=== PATIENT | male | born 1960 | race Caucasian/White ===

== ENCOUNTER 2017-01-16 06:51 | Emergency (ER) | payer OTHER ==
[2017-01-16] MEDS ORDERED: IBUPROFEN 400 MG TABLET PO ONE (07:38)
--- NOTE | 2017-01-16 07:38 | ER PHYSICIAN DOCUMENTATION ---
Physician Documentation [facility] Name:Daniel Andrews Age:56 yrs Sex:Male :1960 Arrival Date:01/16/2017 Time:06:51 BedTrauma-C Private MD:No PCP, Identified ED Ede Dickens Disposition: 01/16/17 07:26 Discharged to Home/Self Care. Impression: Unspecified Drug Poisoning - THC. - Condition is Good. - Discharge Instructions: Altitude - ALTITUDE SICKNESS. - Prescriptions for Zofran 4 mg Oral Tablet - take 1-2 tablet by ORAL route every 4-6 hours As needed; 10 tablet. - Medical Reconciliation form form. - Follow up: Private Physician; When: As needed; Reason: Continuance of care. - Problem is new. - Symptoms have improved. HPI: 01/16 07:00 This 56 yrs old Male presents to ER via Walk In with complaints of Chest Pain. 07:00 This 56 yrs old Male presents to ER via Walk In with complaints of Many jm comnplaints. 07:00 Pt has dizziness, nausea, WALSH, "not feeling right", and anxiety. Pt never once mentioned jm any chest pain to me on my interview. Most of his complaints were just a feeling of not feeling right and wonders if its the THC he ingested. Pt never uses THC, so he still feels intoxicated. . Onset: The symptom(s)/episode began/occurred today. Severity of symptoms: in the emergency department the symptoms are unchanged. The patient has not experienced similar symptoms in the past. The patient has not recently seen a physician. Historical: - Allergies: No known drug Allergies; - Tetanus: < 10 years. - Ebola Screening: : Patient negative for fever greater than or equal to 101.5 degrees Fahrenheit, and additional compatible Ebola Virus Disease symptoms. Patient denies exposure to infectious person. Patient denies travel to an Ebola-affected area in the 21 days before illness onset. . - Immunization history: Flu Vaccine unknown. - Social history: Smoking status: Patient uses tobacco products, current every day smoker. ROS: 07:00 Constitutional: Negative for fever. jm 07:00 Cardiovascular: Negative for chest pain. 07:00 Respiratory: Positive for dyspnea on exertion, Negative for shortness of breath. 07:00 Abdomen/GI: Positive for nausea, Negative for abdominal pain, vomiting. 07:00 Neuro: Positive for dizziness, headache. 07:00 All other systems are negative. Exam: 07:00 Constitutional: The patient appears alert, awake, comfortable. 07:00 Cardiovascular: Rate: normal, Rhythm: regular, Edema: is not appreciated. 07:00 Respiratory: the patient does not display signs of respiratory distress, Respirations: normal, Breath sounds: no acute changes. 07:00 Abdomen/GI: Bowel sounds: normal, Palpation: abdomen is soft and non-tender. 07:00 Musculoskeletal/extremity: DVT Exam: No signs of deep vein thrombosis. Calves: are non-tender, have equal circumference. 07:00 Skin: Appearance: Color: pink, injury, is not appreciated. 07:00 Neuro: Mentation: is normal, appropriate for stated age, Motor: is normal. Vital Signs: 07:01 BP 190 / 98; Pulse 110; Resp 18; Temp 98(O); Pulse Ox 96% on R/A; Weight 90.72 kg; bw2 Height 6 ft. (182.88 cm); Pain 0/10; 07:35 BP 181 / 93; Pulse 93; Resp 16; Pulse Ox 93% on R/A; lp 07:01 Body Mass Index 27.12 (90.72 kg, 182.88 cm) bw2 MDM: 07:12 Patient medically screened. 07:38 EKG attached lp 09:46 Differential Diagnosis THC abuse, Altitude sickness. . Data reviewed: vital signs, nurses notes, EKG, and as a result, I will discharge patient. Test interpretation: by ED physician or midlevel provider: ECG. Counseling: I had a detailed discussion with the patient and/or guardian regarding: the historical points, exam findings, and any diagnostic results supporting the discharge/admit diagnosis, the need for outpatient follow up, with the patient's primary care provider. ECG:. ED course: Pt w all the typical sx of altitude sickness combined with THC intoxication. Pt felt better after reassurance. DC home. . EC:46 Rhythm is regular. QRS [place] is Normal. [place] interval is normal. QRS interval is normal. QT interval is normal. No Q waves. T waves are Normal. No ST changes noted. Dispensed Medications: 07:30 Drug: Zofran 4 mg; Route: PO; lp 07:36 Follow up: Response: Medication administered at discharge. lp 07:30 Drug: Ibuprofen 800 mg; Route: PO; lp 07:37 Follow up: Response: Medication administered at discharge. lp Signatures: Babs Barrett RN RN Ede Blum MD MD Rosy, [facility] bw2
--- NOTE | 2017-01-16 07:38 | ER NURSING DOCUMENTATION ---
Nurse's Notes [facility] Name:Daniel Andrews Age:56 yrs Sex:Male :1960 Arrival Date:01/16/2017 Time:06:51 BedTrauma-C Private MD:No PCP, Identified Diagnosis:Unspecified Drug Poisoning-THC Presentation: 01/16 06:55 Notified ED Physician of patient's arrival and CC Yair José notified. bw2 06:56 Presenting complaint: Patient states: pt states he has chest tightness , dizziness and bw2 nausea. pt states that these symptoms started 3 hours after eating editable marijuana. Transition of care: patient was not received from another setting of care. AIR CAT ACTIVATION no. Asprin Given n/a. 06:56 Method Of Arrival: Walk In bw2 06:56 Acuity: SIENA 3 bw2 Triage Assessment: 07:00 General: Appears in no apparent distress, Behavior is appropriate for age. Pain: Denies bw2 pain. Cardiovascular: No deficits noted. Historical: - Allergies: No known drug Allergies; - Tetanus: < 10 years. - Ebola Screening: : Patient negative for fever greater than or equal to 101.5 degrees Fahrenheit, and additional compatible Ebola Virus Disease symptoms. Patient denies exposure to infectious person. Patient denies travel to an Ebola-affected area in the 21 days before illness onset. . - Immunization history: Flu Vaccine unknown. - Social history: Smoking status: Patient uses tobacco products, current every day smoker. Screenin:04 Infectious Disease Risk None. Abuse screen: Denies threats or abuse. Nutritional bw2 screening: No deficits noted. Assessment: 07:02 See Triage Assessment done by same RN. Pain: Denies pain. Pain does not radiate. Pain bw2 began suddenly. Vital Signs: 07:01 BP 190 / 98; Pulse 110; Resp 18; Temp 98(O); Pulse Ox 96% on R/A; Weight 90.72 kg; bw2 Height 6 ft. (182.88 cm); Pain 0/10; 07:35 BP 181 / 93; Pulse 93; Resp 16; Pulse Ox 93% on R/A; lp 07:01 Body Mass Index 27.12 (90.72 kg, 182.88 cm) bw2 ED Course: 06:53 Patient arrived in ED. ds 06:53 No PCP, Identified is Private Physician. ds 06:55 Natalia Gallegos is Primary Nurse. bw2 07:00 Triage completed. bw2 07:04 Valuables Remains with patient Side rails up X2. Cardiac Monitoring On for Nurse bw2 Monitoring only. Pulse Ox - RN Monitoring Only NIBP On - RN Monitoring Only. 07:12 Ede Mazariegos MD is Attending Physician. jm 07:35 Oxygen O2 via Not indicated at this time. lp 07:38 EKG attached lp Administered Medications: 07:30 Drug: Zofran 4 mg; Route: PO; lp 07:36 Follow up: Response: Medication administered at discharge. lp 07:30 Drug: Ibuprofen 800 mg; Route: PO; lp 07:37 Follow up: Response: Medication administered at discharge. lp Outcome: 07:26 Discharge ordered by . jm 07:35 Discharged to home ambulatory. lp 07:35 Condition: good 07:35 Instructed on discharge instructions, follow up and referral plans. 07:37 Patient left the ED. lp Signatures: Babs Barrett RN RN lp Srot, Aleena, Reg Reg ds Ede Mazariegos MD MD jm Wisely, Beth bw2
[2017-01-16] MEDS ORDERED: ONDANSETRON ODT 4 MG TAB.RAPDIS ONE (07:39)
== END 2017-01-16 07:38 | disposition home or self-care (01) ==
LOC: ER 06:51 → EEVIPCON 06:51 → ER 07:38
DX: T40.7X1A Poisoning by cannabis (derivatives), accidental (unintentional), initial encounter (principal); T70.29XA Other effects of high altitude, initial encounter; R00.0 Tachycardia, unspecified; R11.0 Nausea; R06.00 Dyspnea, unspecified; R42 Dizziness and giddiness; R51 Headache; F17.210 Nicotine dependence, cigarettes, uncomplicated
CPT/HCPCS: 99284